=== PATIENT | female | born 1970 ===

== ENCOUNTER 2018-12-19 13:32 | Emergency (ER) | payer BC ==
[2018-12-19 14:04] VITALS: BP 118/76; PULSE 76; RESP 18; TEMP 98.7; O2SAT 97
--- NOTE | 2018-12-19 14:11 | C.PDOC ---
History Of Present Illness 48 y/o F presents with R elbow and knee pain s/p fall down 4 steps. States was wearing socks and did not have traction. Denies LOC, vomiting, dyspnea. Time Seen by Provider: 12/19/18 13:59 Chief Complaint (Nursing): Upper Extremity Problem/Injury Past Medical History Vital Signs: Last Vital Signs Temp 98.7 F 12/19/18 13:51 Pulse 76 12/19/18 13:51 Resp 18 12/19/18 13:51 BP 118/76 12/19/18 13:51 Pulse Ox 97 12/19/18 13:51 - Medical History PMH: Denies: Chronic Kidney Disease Surgical History: Endoscopy Family History: States: No Known Family Hx - Social History Hx Alcohol Use: No Hx Substance Use: No Review Of Systems Except As Marked, All Systems Reviewed And Found Negative. Constitutional: Negative for: Fever Cardiovascular: Negative for: Chest Pain Physical Exam - Physical Exam Additional Physical Exam Comments: Gen: NAD Head: NC/AT Eyes: No hyphema ENT: MMM Neck: No midline tenderness Chest: No tenderness. No AC joint tenderness CV: Radial pulses 2+ bilaterally Lungs: CTA b/l Abd: Soft, NT Back: No midline tenderness Extremities: R knee tenderness. R elbow tenderness with FROM. No tenderness at shoulder, humerus, forearm, wrist, hand, hip, femur, fibula, tibia, ankle. Neuro: Alert ED Course And Treatment O2 Sat by Pulse Oximetry: 97 Medical Decision Making Medical Decision Making: IMPRESSION: Unremarkable radiographs of the right elbow. IMPRESSION: No acute fracture dislocation identified. Degenerative joint disease is suspected, potentially advanced at the patellofemoral articulation. Clinically correlate further. Discharged home, f/u PMD/Ortho, return to ED for worsening pain, fever, vomiting, dyspnea, or any other problem. [employer] Registry checked, 1 previous prescription for narcotics. Advised of risks. Disposition - Disposition Referrals: Efrain Wilson III, MD [Staff Provider] - Disposition: HOME/ ROUTINE Disposition Time: 14:30 Condition: STABLE Prescriptions: oxyCODONE/Acetaminophen [Percocet 5/325 mg Tab] 1 tab PO Q6 #10 tab Instructions: Contusion (DC) Forms: [facility] ([place]), Work Excuse - Clinical Impression Clinical Impression: Low back pain, Arm pain, Leg pain
--- NOTE | 2018-12-19 14:23 | RAD ---
Date of service: 12/19/2018 PROCEDURE: Radiographs of the right elbow. HISTORY: elbow pain, fall COMPARISON: No prior. FINDINGS: BONES: Normal. No fracture. JOINTS: Normal. No osteoarthritis. SOFT TISSUES: Normal. JOINT EFFUSION: None. OTHER FINDINGS: None. IMPRESSION: Unremarkable radiographs of the right elbow.
--- NOTE | 2018-12-19 14:25 | RAD ---
Date of service: 12/19/2018 PROCEDURE: Right Knee Radiographs. HISTORY: knee pain, fall COMPARISON: None. FINDINGS: BONES: No acute fracture or destructive bony lesion identified. JOINTS: Question subchondral cyst formation deep to the the patella articular cortex may reflect significant osteoarthritis here. Medial and lateral femorotibial compartment joint space narrowing is also noted. JOINT EFFUSION: None. OTHER FINDINGS: None. IMPRESSION: No acute fracture dislocation identified. Degenerative joint disease is suspected, potentially advanced at the patellofemoral articulation. Clinically correlate further.
== END 2018-12-19 14:36 | disposition home or self-care (01) ==
LOC: C.ER 13:32
DX: M54.5 Low back pain (principal); M25.561 Pain in right knee; M25.521 Pain in right elbow

== ENCOUNTER 2019-01-28 07:00 | Day surgery (SDC) | payer BC ==
[2019-01-28 07:19] VITALS: BMI 29.4
[2019-01-28 07:41] VITALS: O2SAT 100
--- NOTE | 2019-01-28 08:30 | CP.SDSHP ---
Same Day Surgery H & P - History Proposed Procedure: EGD/colonoscopy Pre-Op Diagnosis: abdominal pain, change in bowel habits - Allergies Allergies: Allergies No Known Allergies Allergy (Verified 01/27/19 14:27) - Physical Exam General Appearance: NAD Vital Signs: Vital Signs 01/28/19 07:27 Temperature 97.7 F Pulse Rate 76 Respiratory 17 Rate Blood Pressure 124/85 O2 Sat by Pulse 100 Oximetry Mental Status: Alert & Oriented x3 Neuro: WNL Heart: WNL Lungs: WNL GI: WNL - {Optional Preform as Required} Abdomen: WNL - Impression Pt. Evaluated Today:Candidate for Anesthesia & Procedure: Yes - Date & Time Date: 01/28/19 Time: 08:29 Short Stay Discharge - Short Stay Discharge Admitting Diagnosis/Reason for Visit: EIGASTRIC PAIN / CHANGE IN BOWEL HABIT Disposition: HOME/ ROUTINE
[2019-01-28] MEDS ORDERED: Midazolam 2 MG/2 ML VIAL ONE (08:33)
[2019-01-28] MEDS ORDERED: Propofol 10 mg/ml Inj (20 ML) ONE (08:33)
[2019-01-28 09:43] VITALS: RESP 18
[2019-01-28 10:34] VITALS: BP 126/78; PULSE 71; TEMP 9.4
== END 2019-01-28 10:20 | disposition home or self-care (01) ==
LOC: C.ENDO 07:00
PROVIDERS: ATTEND Internal Medicine Gastroenterology
DX: K21.0 Gastro-esophageal reflux disease with esophagitis (principal); K44.9 Diaphragmatic hernia without obstruction or gangrene; R19.4 Change in bowel habit; K29.70 Gastritis, unspecified, without bleeding; D12.3 Benign neoplasm of transverse colon; K64.1 Second degree hemorrhoids
CPT/HCPCS: 43239; 45380; 88305; J2001; J2250; J2704